=== PATIENT | female | born 1960 | race Caucasian/White ===

== ENCOUNTER → 2018-06-24 16:26 | Outpatient (CLI) | payer OTHER, SELFPAY ==
--- NOTE | 2018-06-24 16:29 | DI.MRI.S_ITS ---
PROCEDURE: MR KNEE LT WO CON INDICATIONS: LEFT KNEE MENISCAL TEAR TECHNIQUE: Noncontrast sagittal PD fast spin echo and T2 fast spin echo with fat saturation, sagittal 3-D FLASH with fat saturation; coronal T1 spin echo and PD fast spin echo with fat saturation, and axial PD fast spin echo with fat saturation through the knee. COMPARISON: [facility] [employer], CR, XR KNEE ARTHRITIC SERIES LT, 06/11/2018, 11:26. FINDINGS: Image quality: Excellent. Menisci: There is large horizontal tear involving the posterior horn and body of the medial meniscus. A small 2 mm meniscal cyst is noted adjacent to the posterior horn of the medial meniscus. The lateral meniscus demonstrates normal morphology and internal signal. The meniscal root ligaments appear intact. Cruciate ligaments: The anterior and posterior cruciate ligaments appear intact. Medial structures: The medial collateral ligament appears intact. Visualized portions of the pes anserinus tendons appear normal. No abnormal bursal fluid. Lateral structures: The lateral collateral ligament, long and short heads of the biceps femoris tendon appear intact. The popliteus tendon appears normal. Iliotibial band appears intact. Anterior structures: The quadriceps and patellar tendons appear intact. Patellar alignment is normal. No femoral trochlear dysplasia or ventral trochlear prominence. No edema in the infrapatellar fat pad. Bones and cartilage: No bone marrow contusions or fractures. There is mild thinning of articular cartilage with mild fibrillation involving the medial and lateral femorotibial compartments, as well as the patellofemoral compartment. Joint space: There is physiologic knee joint fluid. No Quispe's cyst. Normal appearing synovial plicae are incidentally noted. IMPRESSION: 1. Large horizontal tear involving the posterior horn and body of the medial meniscus. 2. Mild tricompartmental cartilage thinning and fibrillation. Dictated by: Gi Puga M.D. on 06/24/2018 at 16:24 Transcribed by: NIYA on 06/24/2018 at 16:29 Approved by: Gi Puga M.D. on 06/24/2018 at 17:51
== END ==
PROVIDERS: Family Provider Otolaryngology; PCP Family Medicine; Visit Provider Orthopaedic Surgery
DX: S83.242A Other tear of medial meniscus, current injury, left knee, initial encounter (principal)
CPT/HCPCS: 73721

== ENCOUNTER → 2019-02-18 08:15 | Outpatient (CLI) | payer OTHER, SELFPAY ==
--- NOTE | 2019-02-18 | DI.MRI.S_ITS ---
PROCEDURE: MR HEAD/BRAIN WO/W CON INDICATIONS: LEFT FACIAL DROOP. PAIN BEHIND LEFT EAR TECHNIQUE: Noncontrast axial T1 spin echo, axial T2 fast spin echo, sagittal and axial FLAIR, coronal T2 fast spin echo, axial gradient echo, axial diffusion and ADC through the brain. After the administration of contrast, axial and coronal T1 spin echo with fat saturation through the brain. COMPARISON: None. FINDINGS: Image quality: Excellent. CSF spaces: Basal cisterns are patent. No extra-axial fluid collections. Ventricles are normal in size and shape. Brain: No midline shift. No intracranial bleeds or masses. No abnormal intracranial enhancement. There is cerebral volume loss for age. There is periventricular white matter chronic small vessel ischemic change. The brainstem appears normal. Diffusion-weighted images demonstrate no acute ischemic insults. No chronic ischemic insults. Normal intravascular flow voids are present. Skull and face: Calvarial marrow is normal in signal. Orbits appear normal. Sinuses: Sinuses and mastoids appear clear. IMPRESSION: 1. No acute process. No recent infarct. 2. No explanation for left facial droop and left periauricular pain. 3. Negative evaluation of the internal auditory canals. Dictated by: Clotilde Snow M.D. on 02/18/2019 at 11:23 Approved by: Clotilde Snow M.D. on 02/18/2019 at 11:25
== END ==
PROVIDERS: Family Provider Otolaryngology; PCP Family Medicine; Visit Provider Family Medicine
DX: R29.810 Facial weakness (principal); H92.02 Otalgia, left ear
CPT/HCPCS: 70553

== ENCOUNTER → 2022-07-27 15:42 | Outpatient (CLI) | payer OTHER, SELFPAY ==
--- NOTE | 2022-07-27 15:44 | DI.US.S_ITS ---
PROCEDURE: US PELVIC COMPLETE INDICATIONS: PAIN TECHNIQUE: Real-time scanning was performed of the pelvic organs, with image documentation. Additional endovaginal scanning was necessary due to incomplete visualization of the adnexal and endometrial structures by transabdominal scanning. COMPARISON: None. FINDINGS: Uterus: Uterus is anteverted and normal in size at 5.7 x 3.2 x 4.8 cm. The myometrium is homogeneous. The endometrium measures 2.2 mm combined thickness. An anterior fundal intramural fibroid measures 1.5 x 1.0 x 1.5 cm. Ovaries: The right ovary is not seen. The left ovary measures 1.3 x 1.4 x 1.6 cm with a volume of 1.5 cm. The right ovary has less than 12 follicles. Other: No pathologic free abdominal or pelvic fluid. IMPRESSION: 1. No acute ultrasound abnormality of the pelvis. 2. Intramural fibroid. We strive to produce accurate, complete, and clear reports of imaging services. To assist us in improving patient care, this report was composed using standard report templates and voice recognition software. Therefore, it may contain abnormal punctuation, insertions and/or omissions. Occasional wrong-word or sound-alike substitutions may occur. Though we review the report and make efforts to correct it, we do recommend that the report be read carefully in proper context to recognize any text inaccuracies. Dictated by: Juvencio Willson M.D. on 07/27/2022 at 16:41 Approved by: Juvencio Willson M.D. on 07/27/2022 at 16:44
== END ==
PROVIDERS: Family Provider Otolaryngology; PCP Family Medicine; Referring Provider Nurse Practitioner Adult Health; Visit Provider Nurse Practitioner Adult Health
DX: R10.2 Pelvic and perineal pain (principal); D25.1 Intramural leiomyoma of uterus
CPT/HCPCS: 76830; 76856

== ENCOUNTER → 2022-10-10 10:15 | Outpatient (CLI) | payer OTHER, SELFPAY ==
--- NOTE | 2022-10-10 | DI.RAD.S_ITS ---
PROCEDURE: FL BARIUM SWALLOW W SPEECH INDICATIONS: Dysphagia, unspecified COMPARISON: None. TECHNIQUE: Examination was conducted in conjunction with speech pathology per standard protocol. In the lateral projection, filming was performed of the patient swallowing. AP projection filming may also be performed with patient swallowing. COMPARISON: FINDINGS: Upper, middle, and lower thirds of the esophagus all appear normal. There is no evidence of extrinsic mass compression or stricture. No cricopharyngeal bar, esophageal web, or Zenker's diverticulum identified. IMPRESSION: Please see speech pathologist's report for detail regarding the functionality of the swallowing mechanism. No anatomic abnormality identified. Dictated by: Joseph Chow M.D. on 10/10/2022 at 12:04 Approved by: Joseph Chow M.D. on 10/10/2022 at 12:05
--- NOTE | 2022-10-10 12:38 | ST.SWALLOW ---
Visit Care Team Role Provider Type Blanco Olson MD Primary Care Provider Physician Specialty: Family Practice Address: [facility] [address], [address] Email: [email or web address] Luis Newsome MD Attending Provider Physician Family Provider Referring Provider Specialty: Ear, Nose, Throat Address: [address] [place] [address], [id number] Email: [email or web address] ST Modified Barium Swallow Study CROSSING [place] Modified Barium Swallow Study Start: 10/10/22 12:02 Freq: Status: Active Protocol: Document 10/10/22 12:02 LNK (Rec: 10/10/22 12:38 LNK [id number]) Modified Barium Swallow Study Total Time Visit Start Time 10:30 Visit Stop Time 11:00 Total Visit Minutes [address] Newsome, ENT Reason for Referral dysphagia Setting Setting Outpatient Care Patient Information Identification Type Name,Date of Patient History Pt was seen for a MBSS at the referral of . According to the notes from Dr Donna Newsome dated 08/29/22, the pt reports difficulty with swallowing pills and some crunchy foods such as salads, carrots, etc. Pt reports a sensation of something stuck near the larynx on the left side. She stated that there is something sill in her throat after she has swallowed. She will at times bring up small pieces of food-like residue. According to Dr. Newsome, pt reported tonsil stones even though her tonsils were removed at the age of 3. Subjective Observations Pt was seated in the fluoroscopy chair with directions and procedures described. Pt indicated that she understood and agreed to proceed. Patient Positioning Position View Lat-A/P Imaging Lateral View Textures Administered Trials Presented Thin Liquid via Spoon,Thin Liquid via Cup,Pudding Thick Liquid via Spoon,Regular Textures,Barium Tablet Oral Phase Source: MBSIMP (TM) (C) Bolus Specific Scoring Grid Lip Closure No Impairment (WNL) Tongue Control During Bolus Hold No Impairment (WNL) Bolus Prep/Mastication No Impairment (WNL) Bolus Transport/Lingual Motion No Impairment (WNL) A/P Lingual Propulsion Delay No Oral Residue No Impairment (WNL) Residue Clearing No Impairment (WNL) Nasal Regurgitation No Additional Oral Phase Observations OME was observed to be WNL. Oral phase of swallow demonstrated good mastication with a rotary chew pattern. No oral residue observed. Bolus control, AP transition were noted to be WNL. Pharyngeal Phase Source: MBSIMP (TM) (C) Bolus Specific Scoring Grid Delayed Initiation of Pharyngeal Swallow No Soft Palate Elevation No Impairment (WNL) Tongue Base Strength/Range of Motion No Impairment (WNL) Residue Along the Tongue Base No Laryngeal Elevation No Impairment (WNL) Anterior Hyoid Movement No Impairment (WNL) Epiglottic Range of Motion No Impairment (WNL) Vallecular Residue No Laryngeal Vestibular Closure No Impairment (WNL) Pharyngeal Stripping Wave No Impairment (WNL) Posterior Pharyngeal Wall Residue No Upper Esophageal Sphincter Opening No Impairment (WNL) Residue in the Pyriform Sinuses Yes: See Additional Pharyngeal Phase Observations below Esophageal Clearance Upright Position No Impairment (WNL) Pharyngoesophageal Backflow Observed No Additional Pharyngeal Phase Observations Pharyngeal phase of pt's swallow was observed to be WNL . However, there appeared to be a small diverticula located near the superior opening of the pyriform sinus lateral to the valeculla on pt's left side of her larynx. This initially was thought to be pooling within the valeculla. With slowed motion of the video, this area was noted to be anterior to the valeculla and would fill and partially ermpty with each trial presented. On AP view, pt's jaw bone clocked the view of this area and the suspected diverticula could not be verified. This would support the pt's claim of something stuck and her report of tonsil stone-like residue within her mouth.further examination with instrumentation (e.g., FEES) is recommended if not visible via laryngoscope. Soft foods and alternation of liquids with solids were recommended to the pt. A/P View Textures Administered Trials Presented Barium Tablet A/P View Observations Additional Observations Barium tablet was swallowed and cleared the esophagus without restriction. Clinical Impressions Patient Appropriate for Therapy No Recommendations Diet Liquids Order Thin Diet Order Regular Aspiration Precautions Recommended Precautions Alternate Liquids/Solids Treatment Plan Recommended Referrals ENT Consult Additional Recommended Referrals FEES evaluation (Mobile FEES) Compensatory Strategies Recommendations Alternate Liquids/Solids
== END ==
PROVIDERS: Family Provider Otolaryngology; PCP Family Medicine; Referring Provider Otolaryngology; Visit Provider Otolaryngology
DX: R13.10 Dysphagia, unspecified (principal)
CPT/HCPCS: 74230; 92611

== ENCOUNTER → 2023-04-04 09:18 | Outpatient (CLI) | payer MEDICARE, OTHER, SELFPAY ==
--- NOTE | 2023-04-04 09:21 | DI.RAD.S_ITS ---
PROCEDURE: XR SHOULDER LT MIN 2V INDICATIONS: Left Shoulder Pain TECHNIQUE: 3 views of the shoulder were acquired. COMPARISON: None. FINDINGS: Bones: No fractures or dislocations. No suspicious bony lesions. Visualized ribs appear intact. [id number] acromioclavicular degenerative narrowing. Soft tissues: No suspicious soft tissue calcifications. IMPRESSION: [id number] acromioclavicular degenerative narrowing. Dictated by: Sharron Ellison M.D. on 04/04/2023 at 14:10 Approved by: Sharron Ellison M.D. on 04/04/2023 at 14:10
--- NOTE | 2023-04-04 09:21 | DI.RAD.S_ITS ---
PROCEDURE: XR THORACIC SPINE 3V INDICATIONS: thoracic back pain TECHNIQUE: 3 views of the thoracic spine were acquired. COMPARISON: None. FINDINGS: Bones: No fractures or dislocations. No suspicious bony lesions. 12 pairs of ribs are noted, and appear intact where visualized. Scattered multilevel degenerative disc space narrowing. Soft tissues: No paravertebral stripe thickening. IMPRESSION: Mild scattered multilevel disc space narrowing. Dictated by: Sharron Ellison M.D. on 04/04/2023 at 14:12 Approved by: Sharron Ellison M.D. on 04/04/2023 at 14:12
--- NOTE | 2023-04-04 09:21 | DI.RAD.S_ITS ---
PROCEDURE: XR CERVICAL SPINE 4V OR 5V INDICATIONS: Neck Pain TECHNIQUE: 5 views of the cervical spine acquired. COMPARISON: None. FINDINGS: Bones: No fractures or dislocations to the C7-T1 level. Oblique images demonstrate no bony foraminal stenoses. There is moderate disc space narrowing at C4-5 and C5-6. Multilevel uncovertebral hypertrophy is present. There is minimal foraminal narrowing on the left at C6-7. Soft tissues: No prevertebral soft tissue swelling. IMPRESSION: Degenerative changes most prominent at C6-7 as above. Dictated by: Sharron Ellison M.D. on 04/04/2023 at 14:11 Approved by: Sharron Ellison M.D. on 04/04/2023 at 14:11
== END ==
PROVIDERS: Family Provider Otolaryngology; PCP Family Medicine; Referring Provider Anesthesiology; Visit Provider Anesthesiology
DX: M47.22 Other spondylosis with radiculopathy, cervical region (principal); M48.04 Spinal stenosis, thoracic region; M25.512 Pain in left shoulder; M54.6 Pain in thoracic spine; R10.12 Left upper quadrant pain
CPT/HCPCS: 72050; 72072; 73030; 99214

== ENCOUNTER → 2023-04-20 09:04 | Outpatient (CLI) | payer MEDICARE, OTHER, SELFPAY ==
--- NOTE | 2023-04-20 09:07 | DI.MRI.S_ITS ---
PROCEDURE: MR CERVICAL SPINE WO CON INDICATIONS: cervical radiculopathy and severe pain TECHNIQUE: Noncontrast sagittal T1 spin echo and T2 fast spin echo, sagittal STIR, foraminal oblique sagittal T2 fast spin echo, and axial gradient echo or T2 fast spin echo through the cervical spine. COMPARISON: None. FINDINGS: Image quality: Excellent. Alignment and Curvature: There is normal bony alignment. Bone Marrow: Marrow demonstrates normal overall signal. Spinal Cord: Visualized spinal cord has normal size and signal. No cerebellar tonsillar herniation. Paraspinous Soft Tissues: No paravertebral masses. Prevertebral soft tissues are normal in thickness. C2-C3: Normal appearance. C3-C4: Disc bulge. No canal stenosis. Very mild left facet hypertrophy. No significant foraminal stenosis. C4-C5: Disc bulge. Mild indentation on the ventral cord. AP diameter of the canal measures 9.8 mm. Mild bilateral uncovertebral joint hypertrophy. No significant foraminal narrowing. C5-C6: Diffuse posterior disc bulge, eccentric to the left with flattening on the cord. AP diameter of the central canal measures 9.1 mm. There is more narrowing of the left side of the canal. There is bilateral uncovertebral joint hypertrophy. There is moderate to severe narrowing of the medial aspect of the left foramen with a degree of left foraminal C6 nerve root impingement. C6-C7: Disc bulge. Eccentric to the left. No central canal stenosis. Left uncovertebral joint hypertrophy. Moderate to severe left foraminal narrowing with a degree of left foraminal C7 nerve root impingement. C7-T1: Normal appearance. IMPRESSION: 1. Cervical spondylosis as described above. 2. There is borderline canal stenosis at C4-C5 and [id number] canal stenosis at C5-C6. 3. Multilevel foraminal narrowing as described above. Findings include moderate to severe left foraminal narrowing at C5-C6 and C6-C7. Dictated by: Pepe Tyson M.D. on 04/22/2023 at 8:09 Approved by: Pepe Tyson M.D. on 04/22/2023 at 8:15
--- NOTE | 2023-04-20 09:56 | DI.MRI.S_ITS ---
PROCEDURE: MR THORACIC SPINE WO CON INDICATIONS: Left intercostal neuralgia vs radiculopathy TECHNIQUE: Noncontrast sagittal T1 spine echo and T2 fast spin echo, sagittal STIR, and T2 fast spin echo through the thoracic spine. COMPARISON: None. FINDINGS: Image quality: Excellent. Alignment and Curvature: There is normal bony alignment. Bone Marrow: Marrow is of normal overall signal. No acute vertebral body compression fractures. Spinal Cord: Visualized spinal cord is normal in size and signal. Paraspinous Soft Tissues: No paravertebral masses. Miscellaneous: On axial images, central canal and foramina appear widely patent at all scanned levels. IMPRESSION: No thoracic canal stenosis or foraminal stenosis. Normal appearance of thoracic cord. Dictated by: Pepe Tyson M.D. on 04/22/2023 at 8:08 Approved by: Pepe Tyson M.D. on 04/22/2023 at 8:09
== END ==
PROVIDERS: Family Provider Otolaryngology; PCP Family Medicine; Referring Provider Family Medicine; Visit Provider Family Medicine
DX: M54.12 Radiculopathy, cervical region (principal); M54.14 Radiculopathy, thoracic region; M47.812 Spondylosis without myelopathy or radiculopathy, cervical region; M48.02 Spinal stenosis, cervical region
CPT/HCPCS: 72141; 72146

== ENCOUNTER → 2023-09-07 11:04 | Outpatient (CLI) | payer MEDICARE, OTHER, SELFPAY ==
[2023-09-07 11:23] LABS: Add Manual Diff / Slide Review NO; Basophils Absolute Auto 0 /uL (0-100); Basophils Percent Auto 0.8 % (0-2); Eosinophils Absolute Auto 100 /uL (0-450); Eosinophils Percent Auto 1.3 % (2-4); Hemoglobin 13.4 g/dL (12.0-16.0); Lymphocytes Absolute Auto 1800 /uL (1100-4500); Lymphocytes Percent Auto 31.7 % (25-40); Mean Corpuscular HGB Conc 34.4 % (30-36); Monocytes Absolute Auto 500 /uL (0-900); Monocytes Percent Auto 8.5 % (3-14); Neutrophils Absolute Auto 3300 /uL (1500-7000); Neutrophils Percent Auto 57.7 % (50-75); Platelet Count 152 X10^3/uL (150-400); Red Blood Cell Count 4.48 X10^6/uL (4.0-5.2); White Blood Cell Count 5.8 X10^3/uL (4.5-11.0)
[2023-09-07 11:37] LABS: BUN Creatinine Ratio 16.7 (6-22); Blood Urea Nitrogen 11 mg/dL (7-17); Calcium 9.5 mg/dL (8.4-10.2); Carbon Dioxide 29 mmol/L (22-32); Chloride 101 mmol/L (98-107); Cholesterol 205 mg/dL (140-199); Estimated Glomerular Filt Rate > 60 mL/min (>60); Glucose 103 mg/dL (80-110); HDL Cholesterol 88 mg/dL (40-60); HEMOLYSIS < 15 (0-50); LDL Cholesterol Calculated 102 mg/dL (<100); Potassium 4.1 mmol/L (3.4-5.1); Sodium 137 mmol/L (137-145); Triglycerides 75 mg/dL (35-150)
[2023-09-07 12:08] LABS: TSH w/ Reflex to FT4 0.99 uIU/mL (0.47-4.68)
== END ==
PROVIDERS: Family Provider Otolaryngology; PCP Family Medicine; Referring Provider Family Medicine; Visit Provider Family Medicine
DX: R00.0 Tachycardia, unspecified (principal); R07.89 Other chest pain
CPT/HCPCS: 36415; 80048; 80061; 84443; 85025

== ENCOUNTER → 2025-03-16 08:14 | Outpatient (CLI) | payer MEDICARE, OTHER, SELFPAY ==
[2025-03-16 19:01] LABS: Add Manual Diff / Slide Review NO; Basophils Absolute Auto 100 /uL (0-100); Eosinophils Absolute Auto 100 /uL (0-450); Eosinophils Percent Auto 1.7 % (2-4); Hematocrit 38.2 % (36-46); Lymphocytes Absolute Auto 2000 /uL (1100-4500); Lymphocytes Percent Auto 30.6 % (25-40); Mean Corpuscular HGB Conc 33.9 % (30-36); Mean Corpuscular Hemoglobin 29.5 PG (26-34); Monocytes Absolute Auto 600 /uL (0-900); Monocytes Percent Auto 9.1 % (3-14); Neutrophils Absolute Auto 3700 /uL (1500-7000); Neutrophils Percent Auto 57.6 % (50-75); Platelet Count 168 X10^3/uL (150-400); Red Blood Cell Count 4.39 X10^6/uL (4.0-5.2); Red Cell Distribution Width 13.4 % (11.6-14.8); White Blood Cell Count 6.4 X10^3/uL (4.5-11.0)
[2025-03-16 19:16] LABS: BUN Creatinine Ratio 18.8 (6-22); Blood Urea Nitrogen 13 mg/dL (7-17); Calcium 9.2 mg/dL (8.4-10.2); Carbon Dioxide 30 mmol/L (22-32); Chloride 99 mmol/L (98-107); Cholesterol 217 mg/dL (140-199); Estimated Glomerular Filt Rate > 60 mL/min (>60); Glucose 98 mg/dL (80-110); HDL Cholesterol 64 mg/dL (40-60); HEMOLYSIS < 15 (0-50); LDL Cholesterol Calculated 133 mg/dL (<100); Potassium 4.4 mmol/L (3.4-5.1); Sodium 134 mmol/L (137-145); Triglycerides 98 mg/dL (35-150)
== END ==
PROVIDERS: Family Provider Otolaryngology; PCP Family Medicine; Visit Provider Family Medicine
DX: F33.0 Major depressive disorder, recurrent, mild (principal); E78.2 Mixed hyperlipidemia; Z13.1 Encounter for screening for diabetes mellitus; Z13.6 Encounter for screening for cardiovascular disorders
CPT/HCPCS: 80048; 80061; 85025

== ENCOUNTER → 2025-03-29 11:16 | Outpatient (CLI) | payer MEDICARE, OTHER, SELFPAY ==
[2025-03-29 20:03] LABS: Folate 7.4 ng/mL (2.76-20.0)
[2025-04-01 13:36] LABS: Albumin 3.9 g/dL (2.9-4.4); Alpha 1 Globulin 0.3 g/dL (0.0-0.4); Alpha 2 Globulin 0.8 g/dL (0.4-1.0); Beta 1 Globulin 0.9 g/dL (0.7-1.3); Gamma Globulin 0.8 g/dL (0.4-1.8); Protein, Total 6.6 g/dL (6.0-8.5)
== END ==
PROVIDERS: Family Provider Otolaryngology; PCP Family Medicine; Visit Provider Family Medicine
DX: G62.9 Polyneuropathy, unspecified (principal)
CPT/HCPCS: 82746; 84155; 84165

== ENCOUNTER → 2025-08-12 11:45 | Outpatient (CLI) | payer MEDICARE, OTHER, SELFPAY ==
--- NOTE | 2025-08-12 11:55 | DI.RAD.S_ITS ---
PROCEDURE: XR FINGER LT MIN 2V INDICATIONS: pain in L hand TECHNIQUE: AP hand, 3 views of the 5th finger(s) acquired. COMPARISON: None. FINDINGS: Bones: No fractures or dislocations. No suspicious bony lesions. Soft tissues: No suspicious soft tissue calcifications. IMPRESSION: No acute bony abnormality. Dictated by: Jack Donaldson M.D. on 08/16/2025 at 5:31 Approved by: Jack Donaldson M.D. on 08/16/2025 at 5:32
== END ==
PROVIDERS: Family Provider Otolaryngology; PCP Family Medicine; Referring Provider Family Medicine; Visit Provider Family Medicine
DX: M79.645 Pain in left finger(s) (principal)
CPT/HCPCS: 73140

== ENCOUNTER → 2025-09-06 12:56 | Outpatient (CLI) | payer MEDICARE, OTHER, SELFPAY ==
--- NOTE | 2025-09-06 12:58 | DI.US.S_ITS ---
PROCEDURE: US EXTREMITY NONVASC UPPER LT INDICATIONS: FOREIGN BODY IN LT FINGER TECHNIQUE: Real-time scanning was performed of the left small finger , with image documentation. COMPARISON: None. FINDINGS: No foreign body mass or fluid collection identified. IMPRESSION: Negative examination. Dictated by: Jamaal Peñaloza M.D. on 09/06/2025 at 16:48 Approved by: Jamaal Peñaloza M.D. on 09/06/2025 at 16:49
== END ==
LOC: US 12:57
PROVIDERS: Family Provider Otolaryngology; PCP Family Medicine; Referring Provider Family Medicine; Visit Provider Family Medicine
DX: S60.459D Superficial foreign body of unspecified finger, subsequent encounter (principal)
CPT/HCPCS: 76882